=== PATIENT | female | born 1995 | race Hispanic/Latino ===

== ENCOUNTER → 2024-09-09 | Day surgery (SDC) | payer OTHER | LOC: CSHULT 12:36 | PROVIDERS: ATTEND Nurse Practitioner Family | PROC: 0HBT3ZX Excision of Right Breast, Percutaneous Approach, Diagnostic (ICD-10-PCS; principal; 2024-09-09) | DX: D24.1 Benign neoplasm of right breast (principal) | CPT/HCPCS: 19083; 88305; A4648 ==